=== PATIENT | male | born 1955 | race Caucasian/White ===

== ENCOUNTER 2017-09-02 18:36 | Emergency (ER) | payer MEDICAID ==
[~2017-09-02] VITALS: Ht 190.5 cm; Wt 84.1 kg
[~2017-09-02 18:36] MED LIST: ALBU18HF2 INH; AMIT50TA3 PO; DOCU-28 PO; FENO134C PO; HYDR-565 PO; LEDI1TAB PO; LISI10TA4 PO; METF500T PO; PANT-47 PO; SPIIN IH
[2017-09-02 19:18] VITALS: BP 134/89
== END 2017-09-02 19:21 | disposition home or self-care (01) ==
LOC: ER 18:37
DX: R21 Rash and other nonspecific skin eruption (principal); I10 Essential (primary) hypertension; J44.9 Chronic obstructive pulmonary disease, unspecified; E11.9 Type 2 diabetes mellitus without complications; F17.200 Nicotine dependence, unspecified, uncomplicated; F15.10 Other stimulant abuse, uncomplicated; F12.10 Cannabis abuse, uncomplicated; Z86.19 Personal history of other infectious and parasitic diseases; Z59.0 Homelessness; Z56.0 Unemployment, unspecified; Z60.2 Problems related to living alone; Z79.84 Long term (current) use of oral hypoglycemic drugs; Z79.899 Other long term (current) drug therapy
CPT/HCPCS: 99281

== ENCOUNTER 2017-09-11 01:26 | Emergency (ER) | payer MEDICAID ==
[~2017-09-11] VITALS: Ht 190.5 cm; Wt 84.6 kg
[2017-09-11 01:56] VITALS: BP 141/87
== END 2017-09-11 01:57 | disposition home or self-care (01) ==
LOC: ER 01:27
DX: R51 Headache (principal); I10 Essential (primary) hypertension; E11.9 Type 2 diabetes mellitus without complications; J44.9 Chronic obstructive pulmonary disease, unspecified; F12.10 Cannabis abuse, uncomplicated; F15.10 Other stimulant abuse, uncomplicated; Z98.890 Other specified postprocedural states; Z59.0 Homelessness; Z56.0 Unemployment, unspecified; Z79.899 Other long term (current) drug therapy
CPT/HCPCS: 99281

== ENCOUNTER 2020-06-27 15:52 | Emergency (ER) | payer MEDICAID ==
[~2020-06-27] VITALS: Ht 190.5 cm; Wt 75.0 kg
[~2020-06-27 15:52] MED LIST changes: +HYDR-4353 PO; -HYDR-565 PO
[2020-06-27] MEDS ORDERED: DOXY-1 PO (16:39)
[2020-06-27] MEDS ORDERED: DEXA6TAB6 PO (16:39)
[2020-06-27 17:19] VITALS: BP 102/76
== END 2020-06-27 17:22 | disposition home or self-care (01) ==
LOC: ER 15:53
DX: J44.1 Chronic obstructive pulmonary disease with (acute) exacerbation (principal); R00.0 Tachycardia, unspecified; I10 Essential (primary) hypertension; E11.9 Type 2 diabetes mellitus without complications; F32.9 Major depressive disorder, single episode, unspecified; B19.20 Unspecified viral hepatitis C without hepatic coma; J18.9 Pneumonia, unspecified organism; F12.10 Cannabis abuse, uncomplicated; F15.10 Other stimulant abuse, uncomplicated; Z59.0 Homelessness; Z56.0 Unemployment, unspecified; Z20.828 Contact with and (suspected) exposure to other viral communicable diseases
CPT/HCPCS: 36415; 87635; 99283

== ENCOUNTER 2020-07-20 14:22 | Emergency (ER) | payer MEDICAID ==
[~2020-07-20] VITALS: Ht 190.5 cm; Wt 84.1 kg
[~2020-07-20 14:22] MED LIST changes: +DEXA6TAB6 PO; +LISI10TA27 PO; -LISI10TA4 PO
[2020-07-20] MEDS ORDERED: LIDOcaine 2% 10ml TOPICAL JELLY (Urojet) TP ONE (15:05)
[2020-07-20 15:10] LABS: BASOPHILS # (AUTO) 0.1 X10'3 (0-0.2); BASOPHILS % (AUTO) 0.8 % (0-1); EOSINOPHILS # (AUTO) 0.2 X10'3 (0-0.9); EOSINOPHILS % (AUTO) 2.2 % (0-6); HEMATOCRIT 49.9 % (42.0-52.0); HEMOGLOBIN 16.4 g/dl (14.0-17.9); LYMPHOCYTES # (AUTO) 1.7 X10'3 (1.1-4.8); LYMPHOCYTES % (AUTO) 21.2 % (21-51); MEAN CORPUSCULAR HEMOGLOBIN 27.9 PG (27.0-31.0); MEAN CORPUSCULAR HGB CONC 32.9 g/dL (33.0-36.5); MEAN PLATELET VOLUME 7.8 FL (7.4-10.4); MONOCYTES # (AUTO) 0.7 X10'3 (0-0.9); MONOCYTES % (AUTO) 8.3 % (2-12); NEUTROPHILS # (AUTO) 5.4 X10'3 (1.8-7.7); NEUTROPHILS % (AUTO) 67.5 % (42-75); PLATELET COUNT 230 X10'3 (140-440); RED BLOOD COUNT 5.87 X10'6 (4.70-6.10); RED CELL DISTRIBUTION WIDTH 15.5 % (11.5-14.5)
[2020-07-20 15:13] LABS: CLARITY,URINE SLIGHTLY CLOUDY (Clear); COLOR,URINE YELLOW (Yellow); GLUCOSE, URINE 100 mg/dl (Neg); KETONES,URINE TRACE mg/dl (Neg); LEUKOCYTE ESTERASE ,URINE NEGATIVE (Neg); NITRITES, URINE NEGATIVE (Neg); OCCULT BLOOD,URINE NEGATIVE (Neg); PH,URINE 5.5 (4.8-8.0); PROTEIN,URINE NEGATIVE (Neg); UROBILINOGEN,URINE 0.2 E.U/dL (0.2-1.0)
--- NOTE | 2020-07-20 15:13 | NUR ---
NOTIFIED GEORGINA Causey OF BLADDER SCAN RESULTS. NEW ORDER RECEIVED TO HOLD FC PLACEMENT @ THIS TIME.
[2020-07-20 15:15] LABS: UA COLLECTION TYPE CLN CATCH MIDSTREAM
[2020-07-20 15:19] LABS: COARSE GRANULAR CAST 0-3 /LPF (NEGATIVE); FINE GRANULAR CAST 0-3 /LPF (NEGATIVE); MUCUS STRANDS MANY /LPF (Neg); SQUAMOUS EPITHELIAL CELL,UR MODERATE /LPF (FEW)
[2020-07-20 15:20] LABS: TRANSITIONAL EPI CELLS,URINE MODERATE /HPF
[2020-07-20 15:21] LABS: RBC,URINE 0-2 /HPF (0-2)
[2020-07-20 15:22] LABS: BACTERIA,URINE FEW /HPF (Neg); RENAL CELLS, URINE FEW /HPF
[2020-07-20 15:29] LABS: ALANINE AMINOTRANSFERASE 57 U/L (12-78); ALBUMIN 3.9 G/DL (3.4-5.0); ALBUMIN/GLOBULIN RATIO 0.9 (1.1-1.5); ALKALINE PHOSPHATASE 113 IU/L (46-116); ANION GAP 6 (8-16); ASPARTATE AMINO TRANSFERASE 27 U/L (10-37); BILIRUBIN,TOTAL 0.4 MG/DL (0.1-1.0); BLOOD UREA NITROGEN 22 MG/DL (7-18); BUN/CREATININE RATIO 23.9 (5.4-32.0); CALCIUM 9.8 MG/DL (8.5-10.1); CHLORIDE 106 MMOL/L (99-107); CREATININE 0.92 MG/DL (0.60-1.10); GLUCOSE 93 MG/DL (70-104); POTASSIUM 4.1 MMOL/L (3.5-5.1); SODIUM 143 MMOL/L (135-145); TOTAL CARBON DIOXIDE 30.6 MMOL/L (24-32); TOTAL PROTEIN 8.2 G/DL (6.4-8.2); eGFR 83 ML/MIN
--- NOTE | 2020-07-20 15:32 | NUR ---
Pt to CT via w/c
[2020-07-20 16:30] VITALS: BP 126/65
== END 2020-07-20 16:36 | disposition home or self-care (01) ==
LOC: ER 14:23
DX: N40.1 Benign prostatic hyperplasia with lower urinary tract symptoms (principal); R39.15 Urgency of urination; I10 Essential (primary) hypertension; J44.9 Chronic obstructive pulmonary disease, unspecified; E11.9 Type 2 diabetes mellitus without complications; F32.9 Major depressive disorder, single episode, unspecified; F15.10 Other stimulant abuse, uncomplicated; F12.10 Cannabis abuse, uncomplicated; Z79.899 Other long term (current) drug therapy
CPT/HCPCS: 36415; 74176; 80053; 81001; 85025; 87088; 99284

== ENCOUNTER 2021-11-04 17:15 | Emergency (ER) | payer BC, MEDICAID ==
[~2021-11-04] VITALS: Ht 190.5 cm; Wt 88.6 kg
[~2021-11-04 17:15] MED LIST changes: -FENO134C PO; +FENO134C21 PO
[2021-11-04 17:39] VITALS: BP 138/93
[2021-11-04] MEDS ORDERED: SULF1TAB49 PO (18:44)
[2021-11-04] MEDS ORDERED: ibuprofen tablet 400 MG TABLET PO ONE (18:55)
[2021-11-04] MEDS ORDERED: sulfamethoxazole/trimethoprim DS (800/160mg) tablet PO ONE (18:55)
== END 2021-11-04 19:26 | disposition home or self-care (01) ==
LOC: ER 17:16
DX: L02.512 Cutaneous abscess of left hand (principal); I10 Essential (primary) hypertension; J44.9 Chronic obstructive pulmonary disease, unspecified; E11.9 Type 2 diabetes mellitus without complications; F32.9 Major depressive disorder, single episode, unspecified; F12.10 Cannabis abuse, uncomplicated; F15.10 Other stimulant abuse, uncomplicated; Z59.00 Homelessness unspecified; Z56.0 Unemployment, unspecified; Z79.899 Other long term (current) drug therapy
CPT/HCPCS: 10060; 99283

== ENCOUNTER 2022-10-05 16:54 | Emergency (ER) | payer BC, MEDICAID ==
[~2022-10-05] VITALS: Ht 190.5 cm; Wt 88.0 kg
[~2022-10-05 16:54] MED LIST changes: +ALBU6.7H14 INH
[2022-10-05 16:57] VITALS: BP 147/95
[2022-10-05] MEDS ORDERED: amox tr/potassium clavulanate 875/125mg TAB PO ONE (19:30)
[2022-10-05] MEDS ORDERED: AMOX-580 PO (19:31)
[2022-10-05] MEDS ORDERED: TETanus/Pertussis (Acell)/Diphther VAC/PF (Tdap-Adult) 0.5ml syringe IMVAC ONE (19:35)
--- NOTE | 2022-10-05 19:49 | NUR ---
Patient evaluated, treated and discharged by provider.
== END 2022-10-05 19:50 | disposition home or self-care (01) ==
LOC: ER 16:55
DX: L03.113 Cellulitis of right upper limb (principal); J44.9 Chronic obstructive pulmonary disease, unspecified; I10 Essential (primary) hypertension; E11.9 Type 2 diabetes mellitus without complications; F32.9 Major depressive disorder, single episode, unspecified; F12.90 Cannabis use, unspecified, uncomplicated; F17.200 Nicotine dependence, unspecified, uncomplicated; F15.90 Other stimulant use, unspecified, uncomplicated; Z59.00 Homelessness unspecified; Z56.0 Unemployment, unspecified; Z60.2 Problems related to living alone; Z98.890 Other specified postprocedural states; Z86.19 Personal history of other infectious and parasitic diseases; Z79.84 Long term (current) use of oral hypoglycemic drugs; Z79.899 Other long term (current) drug therapy
CPT/HCPCS: 90471; 90715; 99283

== ENCOUNTER 2022-11-01 22:49 | Emergency (ER) | payer BC, MEDICAID ==
[~2022-11-01 22:49] MED LIST changes: +AMOX-580 PO
== END 2022-11-01 23:25 | disposition home or self-care (01) ==
LOC: ER 22:49
DX: L03.114 Cellulitis of left upper limb (principal); I11.0 Hypertensive heart disease with heart failure; E11.9 Type 2 diabetes mellitus without complications; F29 Unspecified psychosis not due to a substance or known physiological condition; F32.9 Major depressive disorder, single episode, unspecified; Z79.899 Other long term (current) drug therapy; Z79.1 Long term (current) use of non-steroidal anti-inflammatories (NSAID); Z79.2 Long term (current) use of antibiotics
CPT/HCPCS: 99281

== ENCOUNTER 2023-05-05 09:21 | Emergency (ER) | payer BC, MEDICAID ==
[~2023-05-05 09:21] MED LIST changes: -AMOX-580 PO
== END 2023-05-05 10:52 | disposition left against medical advice (07) ==
LOC: ER 09:21
DX: R69 Illness, unspecified (principal); Z53.21 Procedure and treatment not carried out due to patient leaving prior to being seen by health care provider

== ENCOUNTER 2025-01-02 21:41 | Emergency (ER) | payer BC, MEDICAID ==
[~2025-01-02] VITALS: Ht 190.5 cm; Wt 84.6 kg
[2025-01-02 21:47] VITALS: TEMP 98.1
--- NOTE | 2025-01-02 23:51 | Physician Documentation ---
History of Present Illness ~ Chief Complaint: See Chief Complaint Stated Complaint: TESTICULAR PAIN Time Seen by MD: 23:37 OK to notify your PCP?: Yes Primary Medical Doctor: NONE Source: patient Exam Limitations: no limitations HPI 69-year-old male left testicular pain and swelling for approximately 4 days. Layo gilliam states the pain and the swelling has been getting progressively worse because it was which prompted an evaluation by the whole plan earlier today. Patient states that the whole family advised him to go to the emergency department to have it an ultrasound to evaluate for twisting/torsion. Patient states he does have difficulty with urinating but has history of BPH and takes Flomax. Patient denies any dysuria urgency or frequency past baseline with BPH. Patient denies any STI history or discharge. Medication Reconciliation Allergies: Coded Allergies: No Known Allergies (Unverified , 01/02/25) Scheduled Albuterol Sulfate (Proventil Hfa), 2 PUFFS INH Q6H Amitriptyline Hcl (Amitriptyline Hcl), 100 MG PO HS, (Reported) Dexamethasone (Decadron), 1 TAB PO DAILY Docusate Sodium (Colace), 1 CAP PO BID Fenofibrate,Micronized (Fenofibrate), 134 MG PO DAILY, (Reported) Hydrocodone Bit/Acetaminophen (Paxton 10-325 Tablet), 2 TABLET PO TID, (Reported) Ledipasvir/Sofosbuvir (Harvoni 90-400 mg Tablet), 1 TAB PO DAILY, (Reported) Lisinopril (Lisinopril), 10 MG PO DAILY, (Reported) Metformin Hcl* (Glucophage*), 500 MG PO BID, (Reported) Pantoprazole Sodium (PROTONIX tablet), 40 MG PO DAILY, (Reported) Tiotropium Beardsley (SPIRIVA inhaler), 1 CAP IH DAILY, (Reported) Scheduled PRN Albuterol Sulfate (Ventolin Hfa), 2 PUFFS INH Q4HPRN PRN for SOB or wheezing, (Reported) Past Medical History Past Medical History: Headache, Hypertension, COPD, Pneumonia, Hepatitis C, Diabetes, Depression Past Surgical History: orthopedic surgeries Patient History: (DM Type 2) Diabetes mellitus type 2 Other Past Family History: NONCONTRIBUTORY Alcohol Use: None Drug Use: marijuana, methamphetamine Lives with: Alone Lives In: Homeless Occupation: unemployed Review of Systems All Other Systems at this time: Reviewed and Negative Male Genitalia: Reports: see HPI Physical Exam Vital Signs: RN Vital Signs have been reviewed: Yes, Temperature: 98.1, Source: Temporal, Heart Rate: 108, Respiratory Rate: 18, BP: 161/97, Pulse Oximetry: 97, Weight: 84.600 Oxygen Flow Rate: 0 General Appearance: alert, WD/WN, no apparent distress Respiratory: lungs clear, normal breath sounds, no respiratory distress Chest: no accessory muscle use, chest non-tender Cardiolovascular: normal peripheral pulses, regular rate, rhythm, no edema Penile Discharge: none Glans: normal inspection; No: vesicles, red Foreskin: circumcised Shaft: normal inspection; No: vesicles, swelling Scrotum: swelling, tender Epididymis: swelling, tender (Significant left testicular swelling) Testicle: tender, swelling Foreign Body: none Genital No obvious inguinal hernias present Progress Results/Orders Results/Orders Orders - ADRIAN RENTERIA MD Ceftriaxone Im Kit W/Lidocaine (Rocephin (01/03/25 01:00) Vital Signs 01/02/25 01/03/25 21:47 00:00 Temp 98.1 Pulse 108 67 Resp 18 15 B/P (MAP) 161/97 154/87 (109) Pulse Ox 97 99 O2 Flow Rate 0 Medical Decision Making Findings Patient presents to the emergency room with testicular abnormalities as per HPI. Differentials include but are not limited to the differentials listed as below. Ultrasound ordered which shows possible infectious process therefore antibioti cs initiated. ER precautions discussed. No torsion. Genital Diff Dx:Considerations: Include: Abscess, Cellulitis, Epididymitis, Hydrocele, Inguinal hernia, Prostatitis, Testicular torsion, Torsion-epididymis, Urethritis, Urethritis-chlamydial, Urethritis-gonococcal Departure Disposition: HOME / SELF CARE / HOMELESS Impression: Primary Impression: Orchitis Condition: Stable Discharge Instructions: Orchitis Referrals: NO PRIMARY CARE PROVIDER (PCP) Prescriptions Doxycycline Hyclate (DOXYCYCLINE HYCLATE) 150 Mg Tablet.dr 1 TAB PO Q12H for 10 Days, #20 TAB Prov: ADRIAN RENTERIA MD 01/03/25 Education Educated: Patient Educated regarding: diagnosis, treatment, need for follow up Signature Scribe Signature: No Scribe Attestation: The note accurately reflects work and decisions made by me.Adrian Renteria MD 01/03/25 01:01 The note accurately reflects work and decisions made by me.Glenis Matos - EPIC SPECIALIST 01/02/25 23:51 GLENIS MATOS NP January 02, 2025 23:51 ADRIAN RENTERIA MD January 03, 2025 01:01
[2025-01-03] VITALS: BP 154/87; PULSE 67; RESP 15; O2SAT 99
[2025-01-03] MEDS ORDERED: DOXY150T9 PO (01:01)
[2025-01-03] MEDS: CefTRIAXone 1000mg IM Kit (w/lidocaine diluent) IM ONE (01:37)
--- NOTE | 2025-01-03 02:56 | RADIOLOGY REPORT ---
Clinical History Testicular pain Comparison None Technique: Standard grayscale images were acquired in multiple planes with additional Doppler interro gation when appropriate. Without Contrast KHANCRICKET, [id number] Findings: The testes demonstrate a homogeneous echotexture. heterogeneous lesion inferior to the right testicl e. Doppler sonography demonstrates hypervascular left testicle. There is no evidence of torsion. Epididymides demonstrate hypervascularity in the left. Left epididymal cyst 1.4 x 0.9 x 1.6 cm bilateral hydroceles Prominent vessels Impression: 1. Hypervascular left testicle and epididymis suggest epididymoorchitis. 2. Bilateral hydroceles 3. Left epididymal cyst 1.4 x 0.9 x 1.6 cm. 4. Echogenic lesion inferior aspect of the right testicle may represent a prominent epididymal tail versus testicular mass recommend repeat imaging 5. Suspected bilateral varicoceles. Valsalva was not performed. Recommend repeat imaging with Luann cain 6. Scrotal thickening This report was electronically signed by Jhonatan Em MD on 01/03/2025 2:52:44 AM.
== END 2025-01-03 01:49 | disposition home or self-care (01) ==
LOC: ER 21:42
DX: N45.2 Orchitis (principal); E11.9 Type 2 diabetes mellitus without complications; I10 Essential (primary) hypertension; J44.9 Chronic obstructive pulmonary disease, unspecified
CPT/HCPCS: 76870; 93976; 96372; 99285; J0696